=== PATIENT | female | born 1955 | race American Indian/Alaskan Native ===

== ENCOUNTER 2017-10-20 07:58 | Outpatient (CLI) | payer OTHER ==
--- NOTE | 2017-10-20 08:13 | XRay Report ---
BILATERAL HAND THREE VIEWS EACH: 10/20/17 CLINICAL: Bilateral hand pain. FINDINGS: Right:Moderate osteopenia. No fracture or dislocation. Osteoarthritis of the found involving the basal joint, first MCP joint and the IP joint. No erosions. Minimal arthritis in other joints. Carpal bones are intact. The distal radius and ulna are normal. Normal soft tissues. Left: Moderate osteopenia.No fracture or dislocation. Moderately severe osteoarthritis at the basal joint of the and less severe osteoarthritis at the first MTP joint and the IP joint of the thumb. No erosions. Minimal osteoarthritis in other joints. The carpal bones are intact. The distal radius and ulna are normal.Normal soft tissues. IMPRESSION: Bilateral osteoarthritis predominantly involving the thumb and left worse than the right.
== END 2017-10-20 07:59 | disposition home or self-care (01) ==
LOC: SPVIMAG 07:58
PROVIDERS: ATTEND Orthopaedic Surgery Sports Medicine
DX: M18.9 Osteoarthritis of first carpometacarpal joint, unspecified (principal); M85.841 Other specified disorders of bone density and structure, right hand; M85.842 Other specified disorders of bone density and structure, left hand